=== PATIENT | female | born 1965 | race Caucasian/White ===

== ENCOUNTER 2021-09-14 19:21 | Emergency (ER) | payer BC ==
[2021-09-14 19:36] VITALS: RESP 18; TEMP 98.3
--- NOTE | 2021-09-14 21:17 | ED ---
General Adult HPI - General Chief complaint: Extremity Problem,Nontraumatic Stated complaint: Poss Blood Clot Time Seen by Provider: 09/14/21 19:54 Source: patient, RN notes reviewed Mode of arrival: ambulatory Limitations: no limitations - History of Present Illness Initial comments: 86-year-old female with a past medical history of factor V Leiden presents to the emergency room for a chief complaint of right leg pain. Patient reports she has had redness and swelling to the proximal aspect of the right calf for about one week now. Patient reports she does take aspirin daily for this. Patient has a history of blood clot when she was on oral contraceptive pills several years ago. She now takes aspirin daily now that she knows she has Factor 5 Leiden. Patient denies any chest pain or shortness of breath.Patient has no other complaints at this time including shortness of breath, chest pain, abdominal pain, nausea or vomiting, headache, or visual changes. - Related Data Allergies Allergy/AdvReac Type Severity Reaction Status Date / Time No Known Allergies Allergy Verified 09/14/21 19:34 Review of Systems ROS Statement: Those systems with pertinent positive or pertinent negative responses have been documented in the HPI. ROS Other: All systems not noted in ROS Statement are negative. Past Medical History Past Medical History: No Reported History History of Any Multi-Drug Resistant Organisms: None Reported Past Surgical History: No Surgical Hx Reported Past Psychological History: No Psychological Hx Reported Smoking Status: Never smoker Past Alcohol Use History: None Reported Past Drug Use History: None Reported General Exam Limitations: no limitations General appearance: alert, in no apparent distress Head exam: Present: atraumatic Eye exam: Present: normal appearance, PERRL, EOMI. Absent: scleral icterus, conjunctival injection ENT exam: Present: normal exam, mucous membranes moist Neck exam: Present: normal inspection, full ROM. Absent: tenderness Respiratory exam: Present: normal lung sounds bilaterally. Absent: respiratory distress, wheezes Cardiovascular Exam: Present: regular rate, normal rhythm, normal heart sounds GI/Abdominal exam: Present: soft, normal bowel sounds. Absent: distended, tenderness Extremities exam: Present: full ROM (Full range motion right lower extremity), normal capillary refill (Less than 2 seconds right lower extremity), calf tenderness (Mild tenderness and erythema noted to the proximal aspect of the medial right calf.) Neurological exam: Present: alert Course Vital Signs 09/14/21 09/14/21 19:34 20:23 Temperature 98.3 F Pulse Rate 85 79 Respiratory 18 18 Rate Blood Pressure 127/89 144/90 O2 Sat by Pulse 96 96 Oximetry Medical Decision Making - Medical Decision Making Ultrasound did reveal a chronic nonoccluding DVT in the right leg involving the femoral popliteal vein. No acute DVT. At this time discussed with patient that there is no indication to start blood thinners however she does need close follow-up with primary care in vascular surgery. She should have a repeat ultrasound in 1 week. If symptoms are worsening prior to that she cannot be seen she will return to the emergency room for a repeat ultrasound. Disposition Clinical Impression: Leg pain Disposition: HOME SELF-CARE Condition: Good Instructions (If sedation given, give patient instructions): Leg Pain (ED) Additional Instructions: Call primary care doctor tomorrow and request to be seen this week. You should have a repeat ultrasound in 1 week. If you're having worsening symptoms prior to that and cannot be seen return to the emergency room for repeat ultrasound. Follow-up with vascular surgery as well. Is patient prescribed a controlled substance at d/c from ED?: No Referrals: Malik Laboy DO [Primary Care Provider] - 1-2 days Davin Chacon DO [Doctor of Osteopathic Medicine] - 1-2 days Time of Disposition: 22:30
--- NOTE | 2021-09-14 21:37 | US ---
EXAMINATION TYPE: US venous doppler duplex LE RT DATE OF EXAM: 09/14/2021 9:17 PM COMPARISON: NONE CLINICAL HISTORY: pain. SIDE PERFORMED: TECHNIQUE: The lower extremity deep venous system is examined utilizing real time linear array sonog leeanne with graded compression, doppler sonography and color-flow sonography. VESSELS IMAGED: Common Femoral Vein Deep Femoral Vein Greater Saphenous Vein * Femoral Vein Popliteal Vein Small Saphenous Vein * Proximal Calf Veins (* superficial vessels) Right Leg: Positive for DVT. Non-occluding thrombus seen at proximal, mid and distal femoral vein extending through proximal and mid popliteal vein. IMPRESSION: There is chronic deep vein thrombosis in the right leg involving the femoral and popliteal vein. No a cute deep vein thrombosis.
[2021-09-14 22:57] VITALS: BP 155/98; PULSE 70
== END 2021-09-14 22:58 | disposition home or self-care (01) ==
LOC: EC 19:21
DX: M79.661 Pain in right lower leg (principal)
CPT/HCPCS: 99283